=== PATIENT | male | born 1985 | race American Indian/Alaskan Native ===

== ENCOUNTER 2018-01-19 01:55 | Emergency (ER) | payer OTHER ==
[2018-01-19] MEDS ORDERED: ASPIRIN PO ONE (02:20)
[2018-01-19 02:42] LABS: Basophils # (Auto) 0.1 K/mm3 (0.0-0.1); Basophils % (Auto) 0.9 % (0.0-1.8); Eosinophils # (Auto) 0.4 K/mm3 (0.0-0.4); Hematocrit 44.3 % (35.5-45.6); Hemoglobin 14.8 gm/dl (11.8-15.2); Lymphocytes % (Auto) 27.7 % (13.4-35.0); Mean Corpuscular HGB Conc 33 % (32-34); Mean Corpuscular Volume 75 fl (84-94); Monocytes % (Auto) 14.4 % (0.0-7.3); Platelet Count 278 K/mm3 (140-440); Red Blood Count 5.93 M/mm3 (3.65-5.03); Red Cell Distribution Width 14.3 % (13.2-15.2)
[2018-01-19 02:50] LABS: Mean Corpuscular Hemoglobin 25 pg (28-32)
[2018-01-19 02:56] LABS: BUN/Creatinine Ratio 10; Blood Urea Nitrogen 10 mg/dL (9-20); Calcium 9.6 mg/dL (8.4-10.2); Hemolysis Index 6
--- NOTE | 2018-01-19 03:01 | XRay Report ---
FINAL REPORT EXAM: XR CHEST 1V AP HISTORY: chest discomfort TECHNIQUE: A portable upright view of the chest was obtained. FINDINGS: The heart size and mediastinum appear normal. The lungs are clear. Pleural fluid is not seen. The bones soft tissues do not show any acute changes. IMPRESSION: No active chest disease.
[2018-01-19 04:12] VITALS: BP 110/67
--- NOTE | 2018-01-19 05:41 | Emergency Department Report ---
ED Chest Pain HPI - General Chief Complaint: Arrhythmia/Palpitations Stated Complaint: CHEST PAIN Time Seen by Provider: 01/19/18 02:36 Source: patient Mode of arrival: Ambulatory Limitations: No Limitations - History of Present Illness Initial Comments: Patient is a 32-year-old -[place] male who is presenting with palpitations and shortness of breath with dizziness. Patient has not slept well for several days and was prescribed trazodone 100 mg for sleep. Patient for 5 minutes later woke up with palpitations he is denying any chest pain just says it feels like his heart was pumping really hard. Patient states that again he has mild shortness of breath and wants to get checked out. Severity scale (0 -10): 7 - Related Data Home Medications Medication Instructions Recorded Confirmed Last Taken traZODone 100 mg PO HS PRN 01/19/18 01/19/18 Unknown Allergies Allergy/AdvReac Type Severity Reaction Status Date / Time No Known Allergies Allergy Unverified 01/19/18 02:20 Heart Score - HEART Score History: Slightly suspicious EKG: Normal Age: < 45 Risk factors: No known risk factors Troponin: < normal limit HEART Score: 0 ED Review of Systems ROS: Stated complaint: CHEST PAIN Other details as noted in HPI Comment: All other systems reviewed and negative ED Past Medical Hx - Past Medical History Previous Medical History?: No - Surgical History Past Surgical History?: No - Social History Smoking Status: Never Smoker Substance Use Type: None - Medications Home Medications: Home Medications Medication Instructions Recorded Confirmed Last Taken Type traZODone 100 mg PO HS PRN 01/19/18 01/19/18 Unknown History ED Physical Exam - General Limitations: No Limitations General appearance: alert, in no apparent distress - Head Head exam: Present: atraumatic, normocephalic - Eye Eye exam: Present: normal appearance - ENT ENT exam: Present: mucous membranes moist - Neck Neck exam: Present: normal inspection - Respiratory Respiratory exam: Present: normal lung sounds bilaterally. Absent: respiratory distress - Cardiovascular Cardiovascular Exam: Present: regular rate, normal rhythm. Absent: systolic murmur, diastolic murmur, rubs, gallop - GI/Abdominal GI/Abdominal exam: Present: soft, normal bowel sounds - Rectal Rectal exam: Present: deferred - Extremities Exam Extremities exam: Present: normal inspection - Back Exam Back exam: Present: normal inspection - Neurological Exam Neurological exam: Present: alert, oriented X3 - Psychiatric Psychiatric exam: Present: normal affect, normal mood - Skin Skin exam: Present: warm, dry, intact, normal color. Absent: rash ED Course Vital Signs 01/19/18 01/19/18 01/19/18 02:14 02:22 02:30 Temperature 98 F Pulse Rate 68 61 Respiratory 18 14 11 L Rate Blood Pressure 100/76 111/66 O2 Sat by Pulse 100 99 100 Oximetry 01/19/18 01/19/18 01/19/18 02:46 03:00 03:16 Temperature Pulse Rate 63 62 67 Respiratory 10 L 14 14 Rate Blood Pressure 111/66 106/70 106/70 O2 Sat by Pulse 99 99 99 Oximetry 01/19/18 01/19/18 01/19/18 03:30 03:46 04:00 Temperature Pulse Rate 63 59 L 70 Respiratory 13 16 14 Rate Blood Pressure 111/74 111/74 110/67 O2 Sat by Pulse 98 98 97 Oximetry ED Medical Decision Making - Lab Data Result diagrams: 01/19/18 02:29 01/19/18 02:29 Lab Results 01/19/18 01/19/18 01/19/18 Range/Units 02:29 02:29 04:50 WBC 7.1 (4.5-11.0) K/mm3 RBC 5.93 H (3.65-5.03) M/mm3 Hgb 14.8 (11.8-15.2) gm/dl Hct 44.3 (35.5-45.6) % MCV 75 L (84-94) fl MCH 25 L (28-32) pg MCHC 33 (32-34) % RDW 14.3 (13.2-15.2) % Plt Count 278 (140-440) K/mm3 Lymph % (Auto) 27.7 (13.4-35.0) % [place] % (Auto) 14.4 H (0.0-7.3) % Eos % (Auto) 5.0 H (0.0-4.3) % Baso % (Auto) 0.9 (0.0-1.8) % Lymph # 2.0 (1.2-5.4) K/mm3 [place] # 1.0 H (0.0-0.8) K/mm3 Eos # 0.4 (0.0-0.4) K/mm3 Baso # 0.1 (0.0-0.1) K/mm3 Seg Neutrophils % 52.0 (40.0-70.0) % Seg Neutrophils # 3.7 (1.8-7.7) K/mm3 Sodium 141 (137-145) mmol/L Potassium 3.7 (3.6-5.0) mmol/L Chloride 99.1 (98-107) mmol/L Carbon Dioxide 25 (22-30) mmol/L Anion Gap 21 mmol/L BUN 10 (9-20) mg/dL Creatinine 1.0 (0.8-1.5) mg/dL Estimated GFR > 60 ml/min BUN/Creatinine Ratio 10 % Glucose 108 H (75-100) mg/dL Calcium 9.6 (8.4-10.2) mg/dL Troponin T < 0.010 < 0.010 (0.00-0.029) ng/mL - EKG Data -: EKG Interpreted by Me - EKG Data Interpretation: other (EKG shows sinus rhythm 64 normal axis normal intervals there is ST elevation in V3 with some mild J point notching. Patient also has a no ST depressions present. Interpretation is 237) - Radiology Data Radiology results: report reviewed (no acute process on chest x-ray) - Medical Decision Making Patient has had 2 negative troponins EKGs not showing any evidence of STEMI patient will be discharged home at this time. Critical care attestation.: If time is entered above; I have spent that time in minutes in the direct care of this critically ill patient, excluding procedure time. ED Disposition Clinical Impression: Medication reaction, Atypical chest pain Disposition: DC-01 TO HOME OR SELFCARE Is pt being admited?: No Does the pt Need Aspirin: No Condition: Stable Instructions: Chest Pain (ED) Referrals: ERI KURTZ MD [Primary Care Provider] - 3-5 Days
== END 2018-01-19 06:43 | disposition home or self-care (01) ==
LOC: ED 01:55
DX: R07.89 Other chest pain (principal); T43.215A Adverse effect of selective serotonin and norepinephrine reuptake inhibitors, initial encounter; R06.02 Shortness of breath; R42 Dizziness and giddiness; R00.2 Palpitations; Y92.89 Other specified places as the place of occurrence of the external cause
CPT/HCPCS: 36415; 71045; 80048; 84484; 85025; 93005; 93010